=== PATIENT | male | born 1980 ===

== ENCOUNTER 2022-08-08 14:21 | Emergency (ER) | payer OTHER, SELFPAY ==
--- NOTE | ~2022-08-08 | CT_ITS ---
EXAMINATION: CT HEAD WITHOUT CONTRAST CLINICAL INFORMATION: Severe left-sided headache. COMPARISON: None TECHNIQUE: Contiguous axial imaging was performed from the skull base to vertex without intravenous administration of contrast. Coronal and sagittal reformatted images were obtained. This CT examination was performed using dose optimization techniques as appropriate, variously including the following: *Automated exposure control *Adjustment of mA and/or kV according to patient size (this includes techniques or standardized protocols for targeted exams where dose is matched to indication/reason for exam; i.e. extremities or head) *Use of iterative reconstruction technique DLP: 690 mGy-cm FINDINGS: The cortical sulci are normal. Mild asymmetric dilatation of the right lateral ventricle is seen without associated abnormality. The third and fourth ventricles are in their normal midline position. The basilar and prepontine cisterns are unremarkable. There is no acute intra or extracerebral abnormality. There is no mass effect or midline shift. Sections through the bony calvarium are unremarkable. The paranasal sinuses show mild mucosal thickening in the ethmoid sinuses bilaterally. Right mirian bullosa. The bony orbits and orbital contents are unremarkable. Mild anterior nasal septal deviation, apex to the left. CT/CT head/brain wo IV con IMPRESSION: No acute intracranial pathology.
[2022-08-08 14:26] VITALS: BP 126/79; PULSE 68; RESP 18; TEMP 36.6; O2SAT 99; BMI 27.3
[2022-08-08 14:43] LABS: MANUAL DIFF FLAG NO
[2022-08-08 14:46] LABS: Basophils Absolute Auto 0.1 X10*3/uL (0.0-0.2); Basophils Percent Auto 0.9 % (0-2); Eosinophils Absolute Auto 0.2 X10*3/uL (0.0-0.4); Eosinophils Percent Auto 2.7 % (0-4); Hematocrit 43.4 % (42.0-52.0); Imm Gran Abs Auto 0.03 X10*3/uL (0.00-0.03); Imm Gran Pct Auto 0.3 % (0.0-0.4); Lymphocytes Absolute Auto 2.7 X10*3/uL (1.2-4.9); Lymphocytes Percent Auto 30.3 % (20-40); Mean Corpuscular HGB Conc 32.3 g/dl (31.0-36.0); Mean Corpuscular Hemoglobin 29.1 pg (27.0-33.0); Mean Corpuscular Volume 90.2 fL (80.0-98.0); Mean Platelet Volume 9.5 fL (9.4-12.4); Monocytes Absolute Auto 0.8 X10*3/uL (0.1-1.2); Monocytes Percent Auto 8.7 % (2-11); Neutrophils Percent Auto 57.1 % (45-73); Platelet Count 240 X10*3/uL (160-400); Red Blood Count 4.81 X10*6/uL (4.60-5.80); Red Cell Distribution Width 12.1 % (11.0-16.0); White Blood Count 8.8 X10*3/uL (4.8-10.8)
[2022-08-08 14:59] LABS: Alanine Aminotransferase 26 U/L (0-40); Albumin Level 4.7 g/dL (3.5-5.0); Alkaline Phosphatase 60 U/L (39-117); Anion Gap 14 (12-20); Aspartate Amino Transferase 25 U/L (5-37); Bilirubin Total 0.3 mg/dL (0.0-1.0); Blood Urea Nitrogen 16 mg/dL (9-16); Calcium 9.4 mg/dL (8.4-10.2); Carbon Dioxide 27 mmol/L (22-29); Chloride 101 mmol/L (96-108); Creatinine Clr Calc Pharmacy 86.6; Estimated Glomerular Filt Rate > 60; Glucose Random 94 mg/dL (60-115); Potassium 4.4 mmol/L (3.3-5.1); Sodium 138 mmol/L (135-145); Total Protein 7.2 g/dL (6.5-8.0)
[2022-08-08 14:59] LABS: IDNOW Serial# 9DB6401D; Influenza A Negative (Negative); Influenza B2 Negative (Negative)
[2022-08-08 15:05] LABS: COVID-19 Test Negative (Negative); IDNOW Serial# 16C4AD1C
--- NOTE | 2022-08-08 15:07 | ED.HA ---
HPI - Headache General Chief Complaint: Headache Stated Complaint: Headache Time Seen by Provider: 08/08/22 15:06 Source: patient Mode of arrival: ambulatory Limitations: no limitations History of Present Illness HPI Narrative: 42 yo male with history of remote migraines presents to the ER for evaluation of left-sided headache for the last 3 days. He reports it is constant and worsening. Today he was at work and reported the pain was so severe he was unable to stand up or perform his job. He works as a cook in a kitchen. He states he has not had a migraine headache in over 2 years and they were not as severe as this. He reports his headaches usually were on 1 side of the head and usually responded to ibuprofen. He took ibuprofen with minimal relief. He reports he had some blurry vision yesterday but that resolved. He denies any numbness, weakness, tingling. No gait instability. No fever or chills. He denies any nasal congestion or ear pain. MD elicited complaint: headache Pertinent past history: migraines Onset (ago): day(s) (3) Onset description: gradually Location: left and temporal Severity: severe Quality & Timing: throbbing and pulsatile Exacerbating factors: sitting/standing Relieving factors: rest and NSAIDs Context: occurred at rest Treatments prior to arrival: none Related Data Allergies Allergy/AdvReac Type Severity Reaction Status Date / Time Penicillins [PCN] Allergy Angioedema Verified 08/08/22 14:26 Review of Systems Review of Systems: Constitutional: No Fever, No Chills ENT/Mouth: No sore throat, No Rhinorrhea, No Swallowing Difficulty Eyes: No Eye Pain, No Swelling, No Redness, +blurred vision Cardiovascular: No Chest Pain, No SOB Respiratory: No Cough, No Sputum, No Wheezing, No dyspnea Gastrointestinal: No Nausea, No Vomiting, No Diarrhea, No abdominal Pain Musculoskeletal: No joint pain, No Myalgias Skin: No Skin Lesions, No rash Neuro: No Weakness, No Numbness, No Dizziness, + Headache Psych: No Anxiety/Panic, No Depression Heme/Lymph: No Bruising, No Lymphadenopathy PMFSH Social History Social History Advance Directives: No Advance Directives Information Provided: No Physical Exam Vital Signs: Vital Signs: Last Vital Signs Temp 97.8 F 08/08/22 14:26 Pulse 68 08/08/22 14:26 Resp 18 08/08/22 14:26 BP 126/79 08/08/22 14:26 Pulse Ox 99 08/08/22 14:26 O2 Del Method 08/08/22 14:26 BMI result Body Mass Index 27.3 Appearance: Alert. Oriented X3. No acute distress. Head: Atraumatic, normocephalic. No temporal tenderness over the temporal artery. Eyes: Pupils equal, round and reactive to light. ENT: Pharynx normal. Mild bilateral cerumen impaction bilaterally, visualized TMs are normal in appearance. Neck: Normal inspection. Neck supple. CVS: Normal heart rate and rhythm. Pulses normal. Respiratory: No respiratory distress. Breath sounds normal. Abdomen: Soft and nontender. +BS x4 Skin: Skin warm and dry. Normal skin color. Normal skin turgor. No rashes. Extremities: No lower extremity edema. Neuro: Oriented X 3. No motor deficit. No sensory deficit. Steady gait. Nonfocal. Normal speech and cognition Course Course Course Narrative: 42-year-old male presents to the ER for evaluation of severe left-sided headache for the last 3 days. On exam he is neurologically intact. He denies thunderclap headache or the worse headache of his life but it is severe. It is affecting his ability to work and stand. His lab workup was unremarkable. He reports imaging of his head several years ago, will repeat CT scan at this time. 975 mg of Tylenol has been ordered. Will reassess. Reevaluation(s) Reevaluation #1: Signed out to Chris Latham who will f/u CT scan. MDM - Headache Lab Data Result diagrams: 08/08/22 14:36 08/08/22 14:36 Labs: Lab Results 08/08/22 08/08/22 08/08/22 Range/Units 14:34 14:34 14:36 WBC 8.8 (4.8-10.8) X10*3/uL RBC 4.81 (4.60-5.80) X10*6/uL Hgb 14.0 (14.0-18.0) g/dl Hct 43.4 (42.0-52.0) % MCV 90.2 (80.0-98.0) fL MCH 29.1 (27.0-33.0) pg MCHC 32.3 (31.0-36.0) g/dl RDW 12.1 (11.0-16.0) % Plt Count 240 (160-400) X10*3/uL MPV 9.5 (9.4-12.4) fL Immature Gran % (Auto) 0.3 (0.0-0.4) % Neut % (Auto) 57.1 (45-73) % Lymph % (Auto) 30.3 (20-40) % [place] % (Auto) 8.7 (2-11) % Eos % (Auto) 2.7 (0-4) % Baso % (Auto) 0.9 (0-2) % Lymph # (Auto) 2.7 (1.2-4.9) X10*3/uL [place] # (Auto) 0.8 (0.1-1.2) X10*3/uL Eos # (Auto) 0.2 (0.0-0.4) X10*3/uL Baso # (Auto) 0.1 (0.0-0.2) X10*3/uL Abs Immat Gran (auto) 0.03 (0.00-0.03) X10*3/uL Absolute Neuts (auto) 5.0 (2.0-8.3) x10*3/uL Absolute Nucleated RBC 0.000 (0.0-0.012) X10*3/uL Nucleated RBC % (auto) 0.0 (0.0-0.2) /100WBC Sodium (135-145) mmol/L Potassium (3.3-5.1) mmol/L Chloride (96-108) mmol/L Carbon Dioxide (22-29) mmol/L Anion Gap (12-20) BUN (9-16) mg/dL Creatinine (0.5-1.4) mg/dL Estim Creat Clear Calc Estimated GFR Random Glucose (60-115) mg/dL Calcium (8.4-10.2) mg/dL Total Bilirubin (0.0-1.0) mg/dL AST (5-37) U/L ALT (0-40) U/L Alkaline Phosphatase (39-117) U/L Total Protein (6.5-8.0) g/dL Albumin (3.5-5.0) g/dL COVID-19 (NEY) Negative (Negative) COVID-19 Clin Com See Note Influenza Type A (ROHITH) Negative (Negative) Influenza Type B (ROHITH) Negative (Negative) Influenza A & B Note See Note 08/08/22 Range/Units 14:36 WBC (4.8-10.8) X10*3/uL RBC (4.60-5.80) X10*6/uL Hgb (14.0-18.0) g/dl Hct (42.0-52.0) % MCV (80.0-98.0) fL MCH (27.0-33.0) pg MCHC (31.0-36.0) g/dl RDW (11.0-16.0) % Plt Count (160-400) X10*3/uL MPV (9.4-12.4) fL Immature Gran % (Auto) (0.0-0.4) % Neut % (Auto) (45-73) % Lymph % (Auto) (20-40) % [place] % (Auto) (2-11) % Eos % (Auto) (0-4) % Baso % (Auto) (0-2) % Lymph # (Auto) (1.2-4.9) X10*3/uL [place] # (Auto) (0.1-1.2) X10*3/uL Eos # (Auto) (0.0-0.4) X10*3/uL Baso # (Auto) (0.0-0.2) X10*3/uL Abs Immat Gran (auto) (0.00-0.03) X10*3/uL Absolute Neuts (auto) (2.0-8.3) x10*3/uL Absolute Nucleated RBC (0.0-0.012) X10*3/uL Nucleated RBC % (auto) (0.0-0.2) /100WBC Sodium 138 (135-145) mmol/L Potassium 4.4 (3.3-5.1) mmol/L Chloride 101 (96-108) mmol/L Carbon Dioxide 27 (22-29) mmol/L Anion Gap 14 (12-20) BUN 16 (9-16) mg/dL Creatinine 1.11 (0.5-1.4) mg/dL Estim Creat Clear Calc 86.6 Estimated GFR > 60 Random Glucose 94 (60-115) mg/dL Calcium 9.4 (8.4-10.2) mg/dL Total Bilirubin 0.3 (0.0-1.0) mg/dL AST 25 (5-37) U/L ALT 26 (0-40) U/L Alkaline Phosphatase 60 (39-117) U/L Total Protein 7.2 (6.5-8.0) g/dL Albumin 4.7 (3.5-5.0) g/dL COVID-19 (NEY) (Negative) COVID-19 Clin Com Influenza Type A (ROHITH) (Negative) Influenza Type B (ROHITH) (Negative) Influenza A & B Note Discharge Plan Discharge Clinical Impression: Migraine
[2022-08-08] MEDS: Acetaminophen 325 MG TABLET 975 MG PO (15:25)
[2022-08-08] MEDS: Ketorolac Tromethamine 30 MG/ML VIAL IM (17:05)
== END 2022-08-08 17:20 | disposition home or self-care (01) ==
PROVIDERS: Emergency Provider Emergency Medicine
DX: G43.909 Migraine, unspecified, not intractable, without status migrainosus (principal); Z20.822 Contact with and (suspected) exposure to COVID-19; Z79.899 Other long term (current) drug therapy
CPT/HCPCS: 70450; 80053; 85025; 87502; 87635; 96372; 99283; 99284; J1885

== ENCOUNTER 2022-10-14 01:51 | Emergency (ER) | payer MEDICAID, SELFPAY ==
[2022-10-14 01:53] VITALS: BP 128/92; PULSE 84; O2SAT 98
[2022-10-14 01:58] VITALS: BP 133/79; PULSE 81; RESP 16; TEMP 37.1; O2SAT 98; BMI 28.1
[2022-10-14 04:32] VITALS: BP 129/76; PULSE 81; RESP 18; TEMP 36.7; O2SAT 97
[2022-10-14 06:24] VITALS: BP 138/91; PULSE 64; RESP 18; TEMP 37.1; O2SAT 97
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
== END 2022-10-14 09:00 | disposition home or self-care (01) ==
PROVIDERS: Emergency Provider Emergency Medicine
DX: S81.812A Laceration without foreign body, left lower leg, initial encounter (principal); X58.XXXA Exposure to other specified factors, initial encounter; Y93.9 Activity, unspecified; Y92.9 Unspecified place or not applicable; Y99.9 Unspecified external cause status; Z79.899 Other long term (current) drug therapy
CPT/HCPCS: 99283; 99284

== ENCOUNTER 2022-10-17 13:04 | Emergency (ER) | payer MEDICAID, SELFPAY ==
[2022-10-17 13:21] VITALS: BP 122/65; PULSE 86; RESP 18; TEMP 36.4; O2SAT 96; BMI 27.8
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
== END 2022-10-17 14:12 | disposition home or self-care (01) ==
PROVIDERS: Emergency Provider Emergency Medicine Emergency Medical Services
DX: M25.512 Pain in left shoulder (principal); Z79.899 Other long term (current) drug therapy
CPT/HCPCS: 99283

== ENCOUNTER 2022-10-28 10:47 | Outpatient (REF) | payer MEDICAID, SELFPAY ==
--- NOTE | ~2022-10-28 | XR_ITS ---
EXAMINATION: AP BILATERAL KNEE STANDING. LEFT KNEE 2 VIEWS CLINICAL INFORMATION: Pain. COMPARISON: None TECHNIQUE: AP bilateral knee standing 1 view. Left knee 2 views. FINDINGS: AP bilateral knee: Medial and lateral compartment joint space is maintained normal. No bony erosive changes, loose bodies, fracture or dislocation. No soft tissue swelling. Left knee: Minimal loss of patellofemoral compartment joint space. No visible acute fracture, dislocation or subluxation seen. Minimal superior patellar spurring. XR/XR knee LT 2V IMPRESSION: 1. Minimal loss of patellofemoral compartment joint space left knee with superior patellar spurring. No visible acute fracture, dislocation or subluxation seen. 2. Unremarkable AP bilateral knee exam.
--- NOTE | ~2022-10-28 | XR_ITS ---
EXAMINATION: XR shoulder LT min 2V CLINICAL INFORMATION: Reason for Exam M25.519 - Pain in unspecified shoulder COMPARISON: None TECHNIQUE: Four views of the shoulder. FINDINGS: Findings AC separation with widening of the coracoclavicular and acromioclavicular joint spaces. No acute fracture. Glenohumeral joint space is maintained. Soft tissues are unremarkable. XR/XR shoulder LT min 2V IMPRESSION: Findings AC separation with widening of the coracoclavicular and acromioclavicular joint spaces. No acute fracture.
--- NOTE | ~2022-10-28 | XR_ITS ---
EXAMINATION: AP BILATERAL KNEE STANDING. LEFT KNEE 2 VIEWS CLINICAL INFORMATION: Pain. COMPARISON: None TECHNIQUE: AP bilateral knee standing 1 view. Left knee 2 views. FINDINGS: AP bilateral knee: Medial and lateral compartment joint space is maintained normal. No bony erosive changes, loose bodies, fracture or dislocation. No soft tissue swelling. Left knee: Minimal loss of patellofemoral compartment joint space. No visible acute fracture, dislocation or subluxation seen. Minimal superior patellar spurring. XR/XR knee standing BI IMPRESSION: 1. Minimal loss of patellofemoral compartment joint space left knee with superior patellar spurring. No visible acute fracture, dislocation or subluxation seen. 2. Unremarkable AP bilateral knee exam.
== END 2022-10-28 10:48 | disposition home or self-care (01) ==
LOC: HO.HOSX 10:47
PROVIDERS: Visit Provider Physician Assistant
DX: S43.102A Unspecified dislocation of left acromioclavicular joint, initial encounter (principal); S80.02XA Contusion of left knee, initial encounter
CPT/HCPCS: 73030; 73560; 73565; 99202

== ENCOUNTER 2023-03-23 12:18 | Emergency (ER) | payer MEDICAID, SELFPAY ==
[2023-03-23 13:02] VITALS: BP 141/81; PULSE 67; RESP 18; TEMP 36.3; O2SAT 97; BMI 27.8
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
== END 2023-03-23 13:23 | disposition home or self-care (01) ==
PROVIDERS: Emergency Provider Student in an Organized Health Care Education/Training Program; PCP Internal Medicine Geriatric Medicine
DX: S43.102A Unspecified dislocation of left acromioclavicular joint, initial encounter (principal); X58.XXXA Exposure to other specified factors, initial encounter; Y93.9 Activity, unspecified; Y92.9 Unspecified place or not applicable; Y99.9 Unspecified external cause status; F17.200 Nicotine dependence, unspecified, uncomplicated; Z71.6 Tobacco abuse counseling; Z79.899 Other long term (current) drug therapy
CPT/HCPCS: 99282; 99283

== ENCOUNTER 2023-05-09 08:44 | Emergency (ER) | payer MEDICAID, SELFPAY ==
[2023-05-09 09:00] VITALS: BP 126/79; PULSE 81; RESP 15; TEMP 36.9; O2SAT 98; BMI 26.6
--- NOTE | 2023-05-09 09:06 | ED.GENADULT ---
HPI - General Adult General Chief complaint: Back Pain/Injury Stated complaint: back pain Time Seen by Provider: 05/09/23 09:06 Source: patient Mode of arrival: ambulatory Limitations: no limitations History of Present Illness HPI narrative: Patient is a 43-year-old male with history of left AC separation presenting the emergency department with 4 days of left scapula pain worse with movement. 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 He has been using 800 mg ibuprofen as well as lidocaine patches with little relief. Reports increased pain with deep breath. Denies any hemoptysis. Denies history of blood clots. Denies any calf pain or swelling. Denies recent fevers. Denies any falls or other trauma. MD complaint: Left scapula pain Onset (ago): day(s) Location: back Radiation: non-radiation Severity: severe Quality: sharp Pain Consistency: intermittent Relieving factors: rest Exacerbating factors: movement Associated symptoms: denies other symptoms Treatments prior to arrival: NSAID Related Data Previous Rx's Medication Instructions Recorded zqiootzqca-jpkizcwljcawv-ncvgrlxy 2 cap PO Q4-6H PRN pain #14 caps 08/08/22 50 mg-300 mg-40 mg capsule (Fioricet) ibuprofen 600 mg tablet 600 mg PO Q6H PRN pain #20 tabs 08/08/22 oxycodone 5 mg tablet 5 mg PO Q6H PRN pain #10 tabs 08/08/22 doxycycline hyclate 100 mg tablet 100 mg PO BID 7 days #14 tabs 10/14/22 oxycodone 5 mg tablet 5 mg PO Q8H PRN pain #7 tabs 10/14/22 acetaminophen 500 mg tablet 500 mg PO Q6H PRN fever or pain 10/17/22 (Tylenol Extra Strength) #14 tabs lidocaine 5 % topical patch 1 patch topical DAILY PRN pain #30 10/17/22 (Lidoderm) ea naproxen 500 mg tablet 500 mg PO BID PRN pain 10 days #20 10/17/22 tabs cyclobenzaprine 10 mg tablet 10 mg PO TID PRN muscle spasm #14 03/23/23 tabs naproxen 500 mg tablet 500 mg PO BID PRN pain #30 tabs 03/23/23 cyclobenzaprine 5 mg tablet 5 mg PO TID PRN muscle spasm #12 05/09/23 tabs Allergies Allergy/AdvReac Type Severity Reaction Status Date / Time Penicillins [PCN] Allergy Angioedema Verified 03/23/23 13:02 Review of Systems Review of Systems: As per HPI. 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 Blood pressure normal. Heart rate normal. Respiratory rate normal. Temperature normal. Oxygen saturation normal. Const General: cooperative, healthy appearing and no acute distress Orientation/consciousness: oriented to person, oriented to place, oriented to time and patient oriented x3 Limitations: no limitations HENMT Head: Yes normocephalic and Yes atraumatic Ears: external ears normal General nose exam: Normal external nose present Face and sinus: Yes face symmetric Mouth: oropharynx normal and moist mucous membranes Throat: Yes uvula midline Eyes Pupils: Equal, round and reactive pupils present Neck Neck: Yes normal visual inspection and Yes supple Resp Effort & Inspection: normal respiratory effort and able to speak in complete sentences Auscultation: clear to auscultation bilaterally Cardio Rate: regular rate Rhythm: regular rhythm Heart sounds: S1 normal heart sound present and S2 normal heart sound present GI Palpation (GI): Soft to palpation and nontender Auscultation: normoactive bowel sounds General: Yes no CVA tenderness Back/Spine/Pelvis Back: no CVA tenderness Cervical Spine: No Cervical spine tenderness Thoracic/Lumbar Spine: thoracic and lumbar spine normal to inspection, paraspinal muscle tenderness on the left (Trapezius tender to palpation medial to scapula), No thoracic spinal tenderness and No lumbar spinal tenderness Skin General skin exam: elasticity normal and turgor normal Neuro General: oriented to person, oriented to place, oriented to time, patient oriented x3, moves all extremities, no focal motor deficits and CN's II-XI intact bilaterally Cranial nerves: Yes Equal, round and reactive pupils present Cognition (Neuro): normal cognition Extrem General: Yes full ROM, Yes no pedal edema and Yes no calf tenderness Psych Mental Status: mental status grossly normal Affect: normal affect Thought process: Normal thought process present Medical Decision Making Medical Decision Making MDM Narrative: Patient is a 43-year-old male with history of left AC separation presenting the emergency department with 4 days of left scapula pain worse with movement. On exam patient is awake, A+Ox3, VS WNL, afebrile, normal neurological exam without focal deficits, tenderness over left trapezius medial to scapula, no midline spinal tenderness. Given reported symptoms and physical exam findings, differential includes muscle strain, pneumothorax, arthritis. PERC score 0 so no indication for obtaining D-dimer. X-ray without evidence of pneumonia or pneumothorax. My interpretation is in agreement with the radiologist's interpretation. Feel likely muscle strain, patient stable for discharge home with prescription for Flexeril, advised to perform gentle stretching exercises, alternated Tylenol/ibuprofen, follow up with PCP. Differential Diagnosis Differential Diagnoses: The differential diagnosis associated with the presentation includes muscle strain, pneumothorax, pneumonia, arthritis Independent Interpretation I performed an independent interpretation of an: Plain X-Ray Interpretation: I independently reviewed the x-ray and agree with the radiologist's interpretation of no pneumothorax or pneumonia Radiology Impression Discussion of test interpretation with radiology: I have reviewed the radiologist's reading. Radiologist Impression: XR/XR chest 2V IMPRESSION: Unremarkable examination. External Record Review External record reviewed: Inpatient record, Office record and Outpatient record Tests considered The following testing was considered but not selected: Considered D-dimer, CTA chest however PERC score 0 Prescription Management I considered prescription management with: Other (Flexeril) Discharge Plan Discharge Clinical Impression: Muscle strain of left upper back Patient Disposition: Home, Self-Care Instructions: Muscle Strain (DC), Thoracic Back Strain (ED) Additional Instructions: You have been evaluated in the emergency department today for left upper back pain. Your evaluation did not find evidence of medical conditions requiring emergent intervention at this time. Please apply heat to the area for 10-15 minutes several times daily, perform gentle stretching exercises, and resume normal activities as tolerated. You are being prescribed Flexeril which is a muscle relaxer you may take up to every 8 hours as needed. We recommend you take 600mg ibuprofen every 6 hours or 650mg Tylenol every 6 hours as needed for pain. If Needed you can alternate these medications as they take 1 medication every 3 hours. For instance at noon take ibuprofen, then at 3:00 p.m. take Tylenol, then at 6:00 p.m. take ibuprofen. Please schedule an appointment for follow-up with your primary care provider this week. Return to the emergency department if you experience worsening pain, numbness, tingling, change of color in your left arm or hand, or any other concerning symptoms. Prescriptions: New cyclobenzaprine 5 mg tablet 5 mg PO TID PRN (Reason: muscle spasm) Qty: 12 0RF No Action owelhakqto-xiwusuiyfrhnu-ewzl [Fioricet] 50-300-40 mg capsule 2 cap PO Q4-6H PRN (Reason: pain) Qty: 14 0RF Rx Instructions: do not exceed 6 caps per day oxycodone 5 mg tablet 5 mg PO Q6H PRN (Reason: pain) Qty: 10 0RF Rx Instructions: Partial Fill upon patient request. ibuprofen 600 mg tablet 600 mg PO Q6H PRN (Reason: pain) Qty: 20 0RF oxycodone 5 mg tablet 5 mg PO Q8H PRN (Reason: pain) Qty: 7 0RF Rx Instructions: Partial Fill upon patient request. doxycycline hyclate 100 mg tablet 100 mg PO BID 7 Days Qty: 14 0RF acetaminophen [Tylenol Extra Strength] 500 mg tablet 500 mg PO Q6H PRN (Reason: fever or pain) Qty: 14 0RF lidocaine [Lidoderm] 5 % adhesive patch,medicated 1 patch topical DAILY MDD remove after 12 hours PRN (Reason: pain) Qty: 30 0RF Rx Instructions: leave on most painful area for up to 12 hrs naproxen 500 mg tablet 500 mg PO BID PRN (Reason: pain) 10 Days Qty: 20 0RF naproxen 500 mg tablet 500 mg PO BID PRN (Reason: pain) Qty: 30 0RF cyclobenzaprine 10 mg tablet 10 mg PO TID PRN (Reason: muscle spasm) Qty: 14 0RF Stand Alone Forms: Work/School Release
== END 2023-05-09 10:35 | disposition home or self-care (01) ==
PROVIDERS: Emergency Provider Emergency Medicine Emergency Medical Services
DX: S29.012A Strain of muscle and tendon of back wall of thorax, initial encounter (principal); X58.XXXA Exposure to other specified factors, initial encounter; Y93.9 Activity, unspecified; Y92.9 Unspecified place or not applicable; Y99.9 Unspecified external cause status
CPT/HCPCS: 71046; 99283

== ENCOUNTER 2023-05-11 08:28 | Emergency (ER) | payer MEDICAID, SELFPAY ==
[2023-05-11 08:32] VITALS: BP 137/95; PULSE 70; RESP 16; TEMP 36.7; O2SAT 98; BMI 25.8
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
[2023-05-11 10:56] VITALS: PULSE 75; RESP 18; O2SAT 98
== END 2023-05-11 10:56 | disposition home or self-care (01) ==
PROVIDERS: Emergency Provider Emergency Medicine Emergency Medical Services
DX: S43.102A Unspecified dislocation of left acromioclavicular joint, initial encounter (principal); S39.012A Strain of muscle, fascia and tendon of lower back, initial encounter; X58.XXXA Exposure to other specified factors, initial encounter; Y93.9 Activity, unspecified; Y92.9 Unspecified place or not applicable; Y99.9 Unspecified external cause status
CPT/HCPCS: 96372; 99284; J1885

== ENCOUNTER 2023-07-02 18:10 | Emergency (ER) | payer MEDICAID, SELFPAY ==
[2023-07-02 18:18] VITALS: BP 136/79; PULSE 81; RESP 19; TEMP 36.6; O2SAT 98; BMI 24.9
--- NOTE | 2023-07-02 18:18 | ED.GENADULT ---
HPI - General Adult General Chief complaint: Wound/Laceration Stated complaint: finger lac at work Time Seen by Provider: 07/02/23 19:23 Source: patient Mode of arrival: ambulatory Limitations: no limitations History of Present Illness HPI narrative: Patient is a 43-year-old male right-hand dominant who presents emergency department for evaluation of a laceration to the distal tip of the right 2nd digit. He was at work today when he was cleaning a knife and accidentally sustained a laceration. At the time of my examination bleeding is controlled. He does not endorse any numbness tingling or cold sensation. He has full range of motion intact to the finger. States that his tetanus vaccination was updated 1 year ago. Related Data Previous Rx's Medication Instructions Recorded [id number] 2 cap PO Q4-6H PRN pain #14 caps 08/08/22 50 mg-300 mg-40 mg capsule (Fioricet) ibuprofen 600 mg tablet 600 mg PO Q6H PRN pain #20 tabs 08/08/22 oxycodone 5 mg tablet 5 mg PO Q6H PRN pain #10 tabs 08/08/22 doxycycline hyclate 100 mg tablet 100 mg PO BID 7 days #14 tabs 10/14/22 oxycodone 5 mg tablet 5 mg PO Q8H PRN pain #7 tabs 10/14/22 acetaminophen 500 mg tablet 500 mg PO Q6H PRN fever or pain 10/17/22 (Tylenol Extra Strength) #14 tabs lidocaine 5 % topical patch 1 patch topical DAILY PRN pain #30 10/17/22 (Lidoderm) ea naproxen 500 mg tablet 500 mg PO BID PRN pain 10 days #20 10/17/22 tabs cyclobenzaprine 10 mg tablet 10 mg PO TID PRN muscle spasm #14 03/23/23 tabs naproxen 500 mg tablet 500 mg PO BID PRN pain #30 tabs 03/23/23 cyclobenzaprine 5 mg tablet 5 mg PO TID PRN muscle spasm #12 05/09/23 tabs acetaminophen 325 mg tablet 650 mg PO QID PRN pain #30 tabs 05/11/23 (Tylenol) baclofen 5 mg tablet 5 mg PO TID #14 tabs 05/11/23 ibuprofen 600 mg tablet 600 mg PO TID PRN pain #30 tabs 05/11/23 oxycodone 5 mg capsule 5 mg PO Q8H PRN pain #3 caps 05/11/23 prednisone 20 mg tablet 40 mg PO DAILY 5 days #10 tabs 05/11/23 Allergies Allergy/AdvReac Type Severity Reaction Status Date / Time Penicillins [PCN] Allergy Angioedema Verified 07/02/23 18:18 Review of Systems Review of Systems: Yes all other systems are reviewed and are negative [facility] Past Medical History Attestation statement: The following information was validated with the patient. 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 No acute distress.?Normal affect. Neck: Normal inspection.? Neck supple.?? CVS: Heart sounds normal. Normal heart rate and rhythm.? Pulses normal.?? Respiratory: No respiratory distress.? Lung sounds clear to auscultation bilaterally?? Abdomen: Soft and non-tender. Normoactive bowel sounds. Skin: Skin warm and dry.? Normal skin color.? Extremities: No extremity edema.? 3 cm linear laceration to the distal tip of the right 2nd digit along the finger pad. Edges are well approximated. No active bleeding. Neuro: Moves all extremities spontaneously. Sensation intact bilaterally. . Ambulates with normal steady gait. Course Course Course Narrative: RME- 43 year old male presents for evaluation of left index finger laceration. He accidentally sliced his finger on a knife that he was cleaning. Tetanus UTD Medical Decision Making Medical Decision Making MDM Narrative: Patient is a 43 old male presents emergency department for evaluation of a laceration to the right 2nd digit distal finger tip as per HPI physical examination. Bleeding is well controlled, full AROM is intact, low suspicion for any osseous or tendon involvement. Tdap is up-to-date. Discussed options for closure including wound care with sutures versus skin glue. Patient declines suture repair at this time some opting for adhesive closure. Laceration was cleansed with normal saline and Betadine. Edges are well approximated after application of the adhesive. We discussed wound care. Signs and symptoms of infection that would warrant re-evaluation. Outpatient follow-up with primary care provider as needed. All questions answered. Differential Diagnosis Differential Diagnoses: The differential diagnosis associated with the presentation includes (Laceration, neurovascular compromise, tetanus exposure) Independent Historian Clinical information obtained from an independent historian. History obtained from or confirmed by: Spouse (Present at bedside who confirms history) Tests considered The following testing was considered but not selected: Considered XR imaging to evaluate for osseous abnormality, after physical examination this was deferred. Prescription Management I considered prescription management with: Pain Medication (Acetaminophen/ibuprofen) Discharge Plan Discharge Clinical Impression: Laceration Patient Disposition: Home, Self-Care Instructions: Skin Adhesive Care (ED) Prescriptions: No Action [id number]-mjvfjqoldnnlr-sknw [Fioricet] 50-300-40 mg capsule 2 cap PO Q4-6H PRN (Reason: pain) Qty: 14 0RF Rx Instructions: do not exceed 6 caps per day oxycodone 5 mg tablet 5 mg PO Q6H PRN (Reason: pain) Qty: 10 0RF Rx Instructions: Partial Fill upon patient request. ibuprofen 600 mg tablet 600 mg PO Q6H PRN (Reason: pain) Qty: 20 0RF oxycodone 5 mg tablet 5 mg PO Q8H PRN (Reason: pain) Qty: 7 0RF Rx Instructions: Partial Fill upon patient request. doxycycline hyclate 100 mg tablet 100 mg PO BID 7 Days Qty: 14 0RF acetaminophen [Tylenol Extra Strength] 500 mg tablet 500 mg PO Q6H PRN (Reason: fever or pain) Qty: 14 0RF lidocaine [Lidoderm] 5 % adhesive patch,medicated 1 patch topical DAILY MDD remove after 12 hours PRN (Reason: pain) Qty: 30 0RF Rx Instructions: leave on most painful area for up to 12 hrs naproxen 500 mg tablet 500 mg PO BID PRN (Reason: pain) 10 Days Qty: 20 0RF cyclobenzaprine 5 mg tablet 5 mg PO TID PRN (Reason: muscle spasm) Qty: 12 0RF naproxen 500 mg tablet 500 mg PO BID PRN (Reason: pain) Qty: 30 0RF cyclobenzaprine 10 mg tablet 10 mg PO TID PRN (Reason: muscle spasm) Qty: 14 0RF baclofen 5 mg tablet 5 mg PO TID Qty: 14 0RF ibuprofen 600 mg tablet 600 mg PO TID PRN (Reason: pain) Qty: 30 0RF acetaminophen [Tylenol] 325 mg tablet 650 mg PO QID PRN (Reason: pain) Qty: 30 0RF prednisone 20 mg tablet 40 mg PO DAILY 5 Days Qty: 10 0RF oxycodone 5 mg capsule 5 mg PO Q8H PRN (Reason: pain) Qty: 3 0RF Rx Instructions: Partial Fill upon patient request. Referrals: Physician,None [Primary Care Provider] - Stand Alone Forms: Work/School Release
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
== END 2023-07-02 20:46 | disposition home or self-care (01) ==
PROVIDERS: Emergency Provider Emergency Medicine
DX: S61.210A Laceration without foreign body of right index finger without damage to nail, initial encounter (principal); W26.0XXA Contact with knife, initial encounter; Y93.G1 Activity, food preparation and clean up; Y92.120 Kitchen in nursing home as the place of occurrence of the external cause; Y99.9 Unspecified external cause status
CPT/HCPCS: 12002; 99282

== ENCOUNTER 2024-04-10 09:25 | Emergency (ER) | payer MEDICAID, SELFPAY ==
--- NOTE | ~2024-04-10 | XR_ITS ---
EXAMINATION: XR CHEST, 2 VIEWS CLINICAL INFORMATION: Cough COMPARISON: 05/09/2023 TECHNIQUE: PA and lateral views of the chest were obtained. FINDINGS: Lungs are hyperexpanded. No consolidation, pneumothorax, or pleural effusion. Cardiac and mediastinal contours are normal. Pulmonary vasculature is unremarkable. Trachea is midline. Old healed left rib fracture. Chronic changes of prior acromioclavicular separation are noted. No acute osseous findings. XR/XR chest 2V IMPRESSION: Hyperexpanded lungs. No acute pulmonary findings.
[2024-04-10 09:37] VITALS: BP 133/78; PULSE 96; RESP 18; TEMP 36.5; O2SAT 96; BMI 20.4
--- NOTE | 2024-04-10 09:43 | ECG_ITS ---
Test Reason : CHEST PAIN Blood Pressure : / mmHG Vent. Rate : 088 BPM Atrial Rate : 088 BPM P-R Int : 132 ms QRS Dur : 080 ms QT Int : 352 ms P-R-T Axes : 070 054 064 degrees QTc Int : 425 ms Normal sinus rhythm Septal infarct , age undetermined Abnormal ECG No previous ECGs available Referred By: Generic ED Physician Electronically Signed By:POOJA LEIVA MD
[2024-04-10 10:17] LABS: MANUAL DIFF FLAG NO
[2024-04-10 10:19] LABS: Basophils Absolute Auto 0.1 X10*3/uL (0.0-0.2); Basophils Percent Auto 0.9 % (0-2); Eosinophils Absolute Auto 0.2 X10*3/uL (0.0-0.4); Hematocrit 44.7 % (42.0-52.0); Hemoglobin 15.1 g/dl (14.0-18.0); Imm Gran Abs Auto 0.01 X10*3/uL (0.00-0.03); Imm Gran Pct Auto 0.2 % (0.0-0.4); Lymphocytes Absolute Auto 2.1 X10*3/uL (1.2-4.9); Lymphocytes Percent Auto 32.4 % (20-40); Mean Corpuscular HGB Conc 33.8 g/dl (31.0-36.0); Mean Corpuscular Hemoglobin 30.8 pg (27.0-33.0); Mean Corpuscular Volume 91.2 fL (80.0-98.0); Mean Platelet Volume 9.1 fL (9.4-12.4); Monocytes Absolute Auto 0.8 X10*3/uL (0.1-1.2); Neutrophils Absolute Auto 3.3 x10*3/uL (2.0-8.3); Neutrophils Percent Auto 51.5 % (45-73); Platelet Count 250 X10*3/uL (160-400); Red Cell Distribution Width 11.7 % (11.0-16.0); White Blood Count 6.4 X10*3/uL (4.8-10.8)
[2024-04-10 10:34] LABS: Alanine Aminotransferase 27 U/L (0-40); Albumin Level 4.8 g/dL (3.5-5.0); Alkaline Phosphatase 66 U/L (39-117); Anion Gap 19 (12-20); Aspartate Amino Transferase 41 U/L (5-37); Bilirubin Total 0.5 mg/dL (0.0-1.0); Blood Urea Nitrogen 12 mg/dL (9-16); Calcium 9.6 mg/dL (8.4-10.2); Carbon Dioxide 24 mmol/L (22-29); Chloride 104 mmol/L (96-108); Creatinine Clr Calc Pharmacy 75.5; Estimated Glomerular Filt Rate > 60; Glucose Random 104 mg/dL (60-115); Potassium 4.7 mmol/L (3.3-5.1); Sodium 142 mmol/L (135-145); Total Protein 7.8 g/dL (6.5-8.0)
[2024-04-10 10:44] LABS: Troponin-I High Sensitivity < 2.7 ng/L (<3.5-35.0)
== END 2024-04-10 18:05 | disposition left against medical advice (07) ==
PROVIDERS: Emergency Provider Emergency Medicine
DX: R07.9 Chest pain, unspecified (principal); R05.9 Cough, unspecified
CPT/HCPCS: 36415; 71046; 80053; 84484; 85025; 93005; 99281; 99283

== ENCOUNTER → 2024-04-10 09:43 | Outpatient (BNV) | payer MEDICAID, SELFPAY | PROVIDERS: Emergency Provider Emergency Medicine; Visit Provider Internal Medicine Cardiovascular Disease | DX: R07.9 Chest pain, unspecified (principal) | CPT/HCPCS: 93010 ==

== ENCOUNTER 2024-04-14 10:06 | Outpatient (REF) | payer MEDICAID, SELFPAY ==
--- NOTE | ~2024-04-14 | XR_ITS ---
EXAMINATION: XR SHOULDER, LEFT CLINICAL INFORMATION: Dislocated left shoulder. COMPARISON: None available. TECHNIQUE: AP external rotation, Grashey, scapular Y, and axillary views of the left shoulder. FINDINGS: Again seen is wide separation of the AC joint on the left similar to 10/28/2022. The glenohumeral joint appears normal without dislocation. No fractures or rotator cuff calcifications are present. XR/XR shoulder LT min 2V IMPRESSION: Widening of the AC joint similar to 10/28/2022. No evidence of glenohumeral dislocation.
== END 2024-04-14 10:07 | disposition home or self-care (01) ==
LOC: HO.HHCX 10:06
PROVIDERS: Visit Provider Family Medicine
DX: S43.005A Unspecified dislocation of left shoulder joint, initial encounter (principal)
CPT/HCPCS: 73030

== ENCOUNTER 2024-05-17 10:11 | Outpatient (AMB) | payer MEDICAID, SELFPAY ==
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
[2024-05-17 10:29] VITALS: BMI 20.4
== END 2024-05-17 11:00 | disposition home or self-care (01) ==
PROVIDERS: Visit Provider Physician Assistant
DX: S43.102A Unspecified dislocation of left acromioclavicular joint, initial encounter (principal)
CPT/HCPCS: 99213

== ENCOUNTER → 2024-05-17 10:11 | Outpatient (BNVA) | payer MEDICAID, SELFPAY | PROVIDERS: Visit Provider Physician Assistant | DX: S43.102D Unspecified dislocation of left acromioclavicular joint, subsequent encounter (principal) | CPT/HCPCS: 99212 ==

== ENCOUNTER 2024-06-08 11:26 | Outpatient (AMB) | payer MEDICAID, SELFPAY ==
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
[2024-06-08 11:37] VITALS: BMI 20.4
== END 2024-06-08 12:29 | disposition home or self-care (01) ==
PROVIDERS: Visit Provider Physical Medicine & Rehabilitation
DX: S43.102A Unspecified dislocation of left acromioclavicular joint, initial encounter (principal); M89.9 Disorder of bone, unspecified; M79.18 Myalgia, other site
CPT/HCPCS: 99213

== ENCOUNTER 2024-06-08 11:26 | Outpatient (REF) | payer MEDICAID, SELFPAY ==
--- NOTE | ~2024-06-08 | XR_ITS ---
EXAMINATION: XR CERVICAL SPINE CLINICAL INFORMATION: Neck pain. COMPARISON: None available. TECHNIQUE: 4 views of the cervical spine. FINDINGS: Mild anterolisthesis of C7 on T1 of approximately 5 mm should be evaluated with dedicated images as visualization limited due to overlying bony structures. Mild spondylosis in the lower cervical spine. Cervical disc space heights are preserved. XR/XR cervical spine 3V IMPRESSION: 1. Mild anterolisthesis of C7 on T1 of approximately 5 mm should be evaluated with dedicated images as visualization limited due to overlying bony structures. 2. Mild spondylosis in the lower cervical spine.
== END 2024-06-08 11:27 | disposition home or self-care (01) ==
LOC: HO.HOSX 11:26
PROVIDERS: Visit Provider Physical Medicine & Rehabilitation
DX: S43.102D Unspecified dislocation of left acromioclavicular joint, subsequent encounter (principal); M89.9 Disorder of bone, unspecified; M79.18 Myalgia, other site; M54.2 Cervicalgia; V09.9XXD Pedestrian injured in unspecified transport accident, subsequent encounter
CPT/HCPCS: 72040; 99212

== ENCOUNTER 2024-07-05 12:38 | Outpatient (REF) | payer MEDICAID, SELFPAY ==
--- NOTE | ~2024-07-05 | XR_ITS ---
EXAMINATION: XR SHOULDER, LEFT CLINICAL INFORMATION: Left shoulder pain COMPARISON: X-ray of the left shoulder April 14, 2024. TECHNIQUE: AP external rotation, Grashey, scapular Y, and axillary views of the left shoulder. FINDINGS: Persistent widening of the AC joint unchanged compatible with AC joint separation Glenohumeral joint normal. Surrounding bone and soft tissues are unremarkable. XR/XR shoulder LT min 2V IMPRESSION: Persistent left AC joint separation. Electronically signed by: Victor Manuel Townsend MD 07/26/2024 07:00 AM EDT RP
== END 2024-07-05 12:39 | disposition home or self-care (01) ==
LOC: HO.HHCX 12:38
PROVIDERS: Visit Provider Nurse Practitioner Family
DX: M25.512 Pain in left shoulder (principal)
CPT/HCPCS: 73030

== ENCOUNTER 2025-02-15 12:10 | Emergency (ER) | payer OTHER, SELFPAY ==
--- NOTE | ~2025-02-15 | XR_ITS ---
EXAMINATION: XR SHOULDER 2 OR MORE VIEWS LEFT HISTORY: pain COMPARISON: Comparison is made with the prior examination dated 07/05/2024. FINDINGS: Three views of the left shoulder are submitted. Osseous mineralization is normal. Again seen is moderate to marked elevation of the distal clavicle consistent with AC separation. Findings are similar in appearance given differences in technique and patient positioning. There is no fracture or dislocation. The glenohumeral joint is maintained. The soft tissues are unremarkable. XR/XR shoulder LT min 2V IMPRESSION: AC separation, with a similar appearance to the prior study. Electronically signed by: Trev Day MD 02/15/2025 01:17 PM EDT
[2025-02-15 12:25] VITALS: BP 133/106; PULSE 93; RESP 18; TEMP 36.4; O2SAT 99; BMI 21.9
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
[2025-02-15 14:18] VITALS: BP 133/106; PULSE 93; RESP 18; TEMP 36.4; O2SAT 99
== END 2025-02-15 14:19 | disposition home or self-care (01) ==
PROVIDERS: Emergency Provider Emergency Medicine
DX: M25.512 Pain in left shoulder (principal); M25.552 Pain in left hip; F17.210 Nicotine dependence, cigarettes, uncomplicated
CPT/HCPCS: 73030; 99282; 99283

== ENCOUNTER → 2025-02-15 12:28 | Outpatient (BNV) | payer MEDICAID, SELFPAY | PROVIDERS: Visit Provider Radiology Diagnostic Radiology | DX: M25.512 Pain in left shoulder (principal) | CPT/HCPCS: 73030 ==

== ENCOUNTER 2025-04-10 11:41 | Emergency (ER) | payer OTHER, SELFPAY ==
[2025-04-10 11:51] VITALS: BP 127/94; PULSE 88; RESP 18; TEMP 36.3; O2SAT 99; BMI 24.7
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
--- OUTSIDE RECORDS SUMMARY | 2025-04-10 16:28 | XMS_ITS | Encounter Summary ---
Author Organization [employer] Address [address] [place] [address] [address] [place] [address] Care Team Providers Care Forms Analyst Name Role Phone Unavailable Primary Care Provider Unavailabl e Reason for Visit * Reason Onset Date Comments New Patient Appt 06/16/2023 Encounter Details Date Type Department Care Team ([facility] st Contact Info) Description 06/16/2023 Telephone [facility] [address], [place] [id number] Zaid Delgado MD [address] [place] [address] New Patient Appt Social History Tobacco Use Types Packs/Day Years Used Date Smoking Tobacco: Never Assessed Sex and Gender Information Value Date Recorded Sex Assigned at Male 01/27/2023 11:35 AM EDT Legal Sex Male 11:34 AM EDT Gender Identity Male 01/27/2023 11:35 AM EDT Sexual Orientation Straight 01/27/2023 11 :35 AM EDT documented as of this encounter Miscellaneous Notes * Telephone Encounter - Lisa Lorenzo - 06/16/2023 4:13 PM EDT New Patients Par Lisa Sun called to schedule New patient appt, pt did not answer left voicemail to give a call at [phone]. documented in this encounter Plan of Treatment Not on file documented as of this encounter Visit Diagnoses Not on filedocumented in this encounter
[2025-04-10] MEDS: oxyCODONE HCl Immed Release 5 MG TABLET 10 MG PO (16:52)
[2025-04-10 17:03] VITALS: BP 154/84; PULSE 63; RESP 16; TEMP 36.2; O2SAT 100
== END 2025-04-10 17:03 | disposition home or self-care (01) ==
PROVIDERS: Emergency Provider Emergency Medicine
DX: G89.18 Other acute postprocedural pain (principal); M79.602 Pain in left arm; F17.210 Nicotine dependence, cigarettes, uncomplicated; Z79.899 Other long term (current) drug therapy
CPT/HCPCS: 99283